=== PATIENT | female | born 1955 | race Two or more races ===

== ENCOUNTER 2016-08-20 07:47 | Day surgery (SDC) | payer OTHER ==
[2016-08-20] VITALS (9 sets, daily range): BP systolic 108–142; BP diastolic 58–82; PULSE 72–92; RESP 10–18; Ht 152.4 cm; Wt 104.1 kg
[~2016-08-20] VITALS: Ht 152.4 cm; Wt 104.1 kg
[~2016-08-20 07:47] MED LIST: CEFAZOLIN 1 GM INJ ONE; CEFAZOLIN 1 GM/50 ML (PMX) 50 ML IVPB SCH; LACTATED RINGER'S 1,000 ML IV SCH
--- NOTE | 2016-08-20 09:23 | HPN ---
Date/Time of Note Date/Time of Note DATE: 08/20/16 TIME: 09:23 Interval H&P Admission Note Pt. seen H&P reviewed: No system changes CASSIDY JARAMILLO DPM Aug 20, 2016 09:23
[2016-08-20] MEDS ORDERED: ONDANSETRON (ODT) 4 MG TAB ODT PRN (09:30)
[2016-08-20] MEDS ORDERED: HYDROCODONE/APAP (10/325) TAB PO PRN (09:30)
[2016-08-20] MEDS ORDERED: PROPOFOL 20 ML ONE (09:45)
[2016-08-20] MEDS ORDERED: LIDOCAINE 1% (MDV) 20 ML INJ ONE (09:45)
[2016-08-20] MEDS ORDERED: BUPIVACAINE 0.5% (SDV) 30 ML INJ ONE (09:54)
[2016-08-20] MEDS ORDERED: PHENYLephrine (100 MCG/ML) 5ML SYG ONE (10:02)
[2016-08-20] MEDS ORDERED: BUPIVACAINE 0.5% (SDV) 30 ML INJ INJ ONE (10:07)
[2016-08-20] MEDS ORDERED: ONDANSETRON 4 MG INJ ONE (10:09)
[2016-08-20] MEDS ORDERED: DEXAMETHASONE 4 MG/ML 1 ML INJ ONE (10:09)
[2016-08-20] MEDS ORDERED: FAMOTIDINE 20 MG INJ ONE (10:09)
[2016-08-20] MEDS ORDERED: HYDROmorphONE (0.2 MG/ML) 10ML SYG IV PRN ×2 (10:30)
[2016-08-20] MEDS ORDERED: DIPHENHYDRAMINE 50 MG INJ IV PRN (10:30)
[2016-08-20] MEDS ORDERED: PROCHLORPERAZINE 10 MG INJ IV PRN (10:30)
[2016-08-20] MEDS ORDERED: ONDANSETRON 4 MG INJ IV PRN (10:30)
[2016-08-20] MEDS ORDERED: MEPERIDINE 25 MG INJ IV PRN (10:30)
[2016-08-20] MEDS ORDERED: TRIAMCINOLONE ACET 40 MG/ML INJ ONE (10:41)
--- NOTE | 2016-08-20 11:12 | OPR ---
DATE OF OPERATION: 08/20/2016 PREOPERATIVE DIAGNOSIS: Right ankle synovial cyst. POSTOPERATIVE DIAGNOSIS: Adipose cyst. SURGEON: Zev John MD OPERATION: The patient was brought in the OR and approximately 4 mL of 0.5% plain Marcaine was used circumferentially around the cystic area on the lateral aspect of the right ankle. After anesthesi a was achieved, the area was prepped and draped in the usual sterile fashion. Tourniquet was applie d around the ankle. The foot and ankle was exsanguinated and tourniquet inflated to 250 mmHg. Attention was directed to the posterior aspect of the cyst where an approximately 4 cm curvilinear i ncision was made. Sharp and blunt dissection was achieved. Bleeding vessels were ligated. Nervous tissue was retracted. There is a large amount of adipose tissue that was noted in the region. Car e was taken to separate vessels and nerves from the region. Utilizing Metzenbaum scissors and an Ad son-Brown pickup, the cyst was in clear view. This was circumscribed and removed in toto over the l ateral ankle region sinus tarsi region. The area was then copiously lavaged with antibiotic solutio n. The cyst was sent to pathology for analysis. The surgical site was then coapted with 3-0 and 4-0 Vicryl suture and 3-0 nylon suture in a running type stitch. Postoperatively, there was approximately 4 mL of 0.5% plain Marcaine utilized to the r egion. Also, 0.5 mL of Kenalog-40 was utilized in the sinus tarsi region. A dressing of Steri-Stri ps, 4 x 4's, rolled gauze, Coban, and elastic wrap was applied. The tourniquet was released and nor moactive hyperemia was noted to all the digits of the right foot. This patient tolerated the proced ure well and left the room in stable condition. Dictated By: ZEV GORDON/LAURIE Conf#: [id number] DID#: [id number]
== END 2016-08-20 16:41 | disposition home or self-care (01) ==
LOC: SDS 07:47
PROVIDERS: ATTEND Podiatrist Foot & Ankle Surgery
DX: M71.371 Other bursal cyst, right ankle and foot (principal)
CPT/HCPCS: 27630; 88304; J0690; J1100; J2405; Z7512; Z7610; J2370